=== PATIENT | female | born 1995 | race Caucasian/White ===

== ENCOUNTER → 2017-11-06 | Emergency (ER) | payer OTHER ==
[~2017-11-06] VITALS: Ht 157.5 cm; Wt 45.4 kg
[~2017-11-06] MED LIST: XANAX1 MG
== END | disposition left against medical advice (07) ==
LOC: ER 03:42
DX: S61.422A Laceration with foreign body of left hand, initial encounter (principal); T42.4X2A Poisoning by benzodiazepines, intentional self-harm, initial encounter; F32.89 Other specified depressive episodes; R53.81 Other malaise; X78.1XXA Intentional self-harm by knife, initial encounter; Y93.89 Activity, other specified; Y92.89 Other specified places as the place of occurrence of the external cause; Y99.8 Other external cause status